=== PATIENT | male | born 1935 | race Caucasian/White ===

== ENCOUNTER 2016-12-08 00:18 | Inpatient (IN) | payer MEDICARE, OTHER ==
[~2016-12-08] VITALS: Ht 180.3 cm; Wt 121.5 kg
--- NOTE | ~2016-12-08 | CON ---
PATIENT'S NAME: TONNY FENG [facility] AGE: 81 Y [address] ROOM: [place] [id number] LOCATION: GICU ADMIT DATE: 12/08/2016 Consultation DISCHARGE DATE: FAMILY PHYSICIAN: Physician, New ATTENDING PHYSICIAN: LELIA ADAN DATE OF CONSULTATION: 12/08/2016 CONSULTATION NOTE REFERRING PROVIDER: Hospitalist Service. REASON FOR REFERRAL: Ventilator and critical care management. HISTORY OF PRESENT ILLNESS: The patient is a 81-year-old gentleman presenting with fever, generalize malaise, and urinary tract symptoms. He was found to have probable pyelonephritis. In the course of his workup and initial treatment, he developed progressively increasing shortness of breath requiring intubation. Currently, he is on the ventilator. PAST MEDICAL HISTORY: Unable to give. Please refer to the admission history and physical exam. FAMILY HISTORY: Unable to give. Please refer to the admission history and physical exam. SOCIAL HISTORY: Unable to give. Please refer to the admission history and physical exam. REVIEW OF SYSTEMS: Unable to give. Please refer to the admission history and physical exam. PHYSICAL EXAMINATION: GENERAL: Intubated, sedated but arousable. ENT: Endotracheal tube in place. NECK: Normal. CHEST: Normal. LUNGS: Clear with tidal breaths. HEART: Regular. ABDOMEN: Nontender. Slightly distended. Decreased bowel sounds. EXTREMITIES: Trace of edema. PATIENT'S NAME: TONNY FENG [facility] AGE: 81 Y [address] ROOM: [address] [address] LOCATION: GICU ADMIT DATE: 12/08/2016 Consultation DISCHARGE DATE: FAMILY PHYSICIAN: Physician, New ATTENDING PHYSICIAN: LELIA ADAN ASSESSMENT: Acute hypoxemic respiratory failure secondary to sepsis. Source of sepsis appears to be urinary tract. PLAN: Assist in ventilator and critical care management. MD LIVIER RAMSEY/silvana /[id number] d: 12/08/162109 t: 12/11/16 0949, CONSULTATION REPORT
--- NOTE | ~2016-12-08 | ENPV ---
Vascular Lower Extremities DVT Study Procedure Demographics Patient Name TONNY FENG Date of Study 12/09/2016 Patient Number [id number] Gender Male Date of 1935 Age 81 Visit Number [id number] Height 71 Accession Number [id number] Weight 253 Referring Alexandru Avendano MD Interpreting Bacilio Branch MD Physician Garrett Durham Physician Physician Ordering Physician Alexandru Avendano MD Proofer Apprentice Holistic Pulser Luther Villatoro, [facility] Conclusions Summary No evidence of deep vein thrombosis in bilateral common femoral veins, femoral veins, popliteal veins, posterior tibial veins, and the left distal peroneal veins. The right peroneal veins and the left proximal to mid peroneal veins were not visualized secondary to sub-optimal images. Cannot rule out deep vein thrombosis in these veins. Procedure Type of Study: Veins:Lower Extremities DVT Study, Venous Duplex Lower Extremity Bilateral. Indications for Study:Bilateral lower extremity edema. Appropriate Use Criteria:9 Patient Status:MIKEL. Study Location:Inpatient Portable. Technical Quality:Limited visualization due to sub-optimal image. Risk Factors - The patient's risk factor(s) include: treated arterial hypertension. - The patient has a former tobacco history(hasn't smoked in the past 50 years). Velocities are measured in cm/s ; Diameters are measured in cm Right Lower Extremities DVT Study Measurements Right 2D and Doppler Measurements + + + + +------+------+ + !Location !Visualized!Compressibility!Thrombosis!Signal!Reflux!Reflux ! ! ! ! ! ! ! !(sec) ! + + + + +------+------+ + !GSV Thigh !Yes !Yes !None !Phasic!No ! ! + + + + +------+------+ + !Common !Yes !Yes !None !Phasic!No ! ! !Femoral ! ! ! ! ! ! ! + + + + +------+------+ + !Prox !Yes !Yes !None !Phasic!No ! ! !Femoral ! ! ! ! ! ! ! + + + + +------+------+ + !Mid Femoral!Yes !Yes !None !Phasic!No ! ! + + + + +------+------+ + !Dist !Yes !Yes !None !Phasic!No ! ! !Femoral ! ! ! ! ! ! ! + + + + +------+------+ + !Popliteal !Yes !Yes !None !Phasic!No ! ! + + + + +------+------+ + !Gastroc !Yes !Yes !None ! ! ! ! + + + + +------+------+ + !PTV !Yes !Yes !None ! ! ! ! + + + + +------+------+ + !Peroneal !No ! ! ! ! ! ! + + + + +------+------+ + Left Lower Extremities DVT Study Measurements Left 2D and Doppler Measurements + + + + +------+------+ + !Location !Visualized!Compressibility!Thrombosis!Signal!Reflux!Reflux ! ! ! ! ! ! ! !(sec) ! + + + + +------+------+ + !GSV Thigh !Yes !Yes !None !Phasic!No ! ! + + + + +------+------+ + !Common !Yes !Yes !None !Phasic!No ! ! !Femoral ! ! ! ! ! ! ! + + + + +------+------+ + !Prox !Yes !Yes !None !Phasic!No ! ! !Femoral ! ! ! ! ! ! ! + + + + +------+------+ + !Mid Femoral!Yes !Yes !None !Phasic!No ! ! + + + + +------+------+ + !Dist !Yes !Yes !None !Phasic!No ! ! !Femoral ! ! ! ! ! ! ! + + + + +------+------+ + !Popliteal !Yes !Yes !None !Phasic!No ! ! + + + + +------+------+ + !Gastroc !Yes !Yes !None ! ! ! ! + + + + +------+------+ + !PTV !Yes !Yes !None ! ! ! ! + + + + +------+------+ + !Peroneal !Yes !Yes !None ! ! ! ! + + + + +------+------+ + Signature dtt: JOSE ALBERTO FORD dtd: 12/09/16 1611 Physician Self Edit
--- NOTE | ~2016-12-08 | OR ---
PATIENT'S NAME: TONNY FENG [facility] AGE: 81 Y [address] ROOM: [place] [address] LOCATION: GICU ADMIT DATE: 12/08/2016 OR/Procedure Report DISCHARGE DATE: FAMILY PHYSICIAN: Physician, New ATTENDING PHYSICIAN: LELIA TUCKER SURGEON: Lelia Tucker MD HAT AND CAP PARTS CUTTER HAND: DATE OF PROCEDURE: 12/08/2016 PROCEDURE: Rapid sequence intubation. INDICATION: Respiratory failure secondary to severe sepsis and septic shock. DESCRIPTION OF PROCEDURE: This procedure was done emergently. The patient was inducted using etomidate 20 mg and Versed 5 mg. Using video laryngoscopy, vocal cords were visualized and 7.0 tube was passed and seen going through the vocal cords. End-tidal showed good positioning. Post intubation chest x-ray showed good positioning of the tip of the intubation. No immediate complications noted for this procedure. LELIA TUCKER MD FAITH/rastal /[id number] d: 12/09/16 0007 t: 12/10/16 0205, OPERATIVE SUMMARY
--- NOTE | ~2016-12-08 | OR ---
PATIENT'S NAME: TONNY FENG [facility] AGE: 81 Y [address] ROOM: [place] [address] LOCATION: GICU ADMIT DATE: 12/08/2016 OR/Procedure Report DISCHARGE DATE: FAMILY PHYSICIAN: Physician, New ATTENDING PHYSICIAN: LELIA TUCKER SURGEON: Lelia Tucker MD GOLD BUYER: DATE OF PROCEDURE: 12/08/2016 PROCEDURE: Arterial line placement. INDICATION: Hemodynamic monitoring plus blood pressure monitoring. This procedure was done emergently. PROCEDURE IN DETAIL: The left radial artery was selected for cannulation. A site was prepared in a sterile fashion. Using Arrow kit, radial artery was tried to be accessed, but after 3 failed attempts, we selected the right radial artery and on first attempt, got bright red blood in a pulsatile fashion. Guidewire was advanced, and Angiocath was advanced over the guidewire. Guidewire was removed. It showed good placement of the art line on the monitor. Filipe test on both sides was performed, and no immediate complications noted. Line was secured. LELIA TUCKER MD FAITH/silvana /[id number] d: 12/09/16 0021 t: 12/10/16 0203, OPERATIVE SUMMARY
--- NOTE | ~2016-12-08 | OR ---
PATIENT'S NAME: TONNY FENG [facility] AGE: 81 Y [address] ROOM: [place] [address] LOCATION: GICU ADMIT DATE: 12/08/2016 OR/Procedure Report DISCHARGE DATE: FAMILY PHYSICIAN: PHYSICIAN, UNKNOWN ATTENDING PHYSICIAN: LELIA ADAN SURGEON: Devi Randhawa DO TANNING DRUM OPERATOR: DATE OF PROCEDURE: 12/08/2016 PREOPERATIVE DIAGNOSIS: Sepsis with need for central venous access for pressor support. POSTOPERATIVE DIAGNOSIS: Sepsis with need for central venous access for pressor support. PROCEDURE PERFORMED: Insertion of left subclavian vein triple-lumen central venous catheter. BRIEF HISTORY: Mr. Feng is a 81-year-old white male, intubated in the intensive care unit. He is in need of central venous access for continued blood pressure support. Informed consent has been obtained. The left infraclavicular space was sterilely prepped and draped. 1% lidocaine was used to infiltrate the area and with the patient in Trendelenburg position, the subclavian vein was accessed without difficulty and a guidewire fed without resistance. Stab incision was made at the base of the needle, and the needle was withdrawn. A soft tissue dilator was placed over the guidewire and withdrawn and then the triple-lumen catheter was placed over the guidewire, and the guidewire was withdrawn. Each lumen aspirated easily for dark venous blood and was flushed with sterile saline. It was secured into position with a 2-0 nylon, and a sterile dressing applied. A chest x-ray is pending for placement. DEVI RANDHAWA DO MCB/modl /[id number] d: 12/08/16 1143 t: 12/08/16 1234, OPERATIVE SUMMARY
--- NOTE | ~2016-12-08 | HP ---
PATIENT'S NAME: TONNY FENG [facility] AGE: 81 Y [address] ROOM: [place] [address] LOCATION: [facility] ADMIT DATE: 12/08/2016 History & Physical DISCHARGE DATE: FAMILY PHYSICIAN: PHYSICIAN, UNKNOWN ATTENDING PHYSICIAN: LELIA ADAN DATE OF SERVICE: CHIEF COMPLAINT: Not feeling good. HISTORY OF PRESENT ILLNESS: A 81-year-old gentleman with a past medical history of hypertension, had not been feeling great for past 4-5 days. He stated that he felt that he had some sort of flu, which has been going around the town. On specific questioning, he said he has been having trouble urinating in the past 3-4 days. He described that he is unable to initiate the urination and happening more frequently, but not associated with any burning or any pain. He did endorse having fever and chills in the last 3-4 days. Today, his symptoms got worse, and he was going to bean picker something from the floor and fell down and really does not remember anything. EMS was called. He was taken to the local emergency department. There, he was found to be tachycardic and febrile. Initial investigations revealed elevated white count as well as BRYAN. He was transferred here for further medical care. On my questioning, he stated that he is feeling much better after receiving some IV fluids and antibiotics since he presented to the outside hospital. He again endorsed having trouble urinating in the past couple of days associated with fever as mentioned above, but denied any chest pain, shortness of breath, headache, fever, cough, sputum production, dizziness, trouble with the eyes, trouble swallowing, any abdominal pain. He did endorse having couple of episodes of diarrhea. He further denied any PND, orthopnea, or leg swelling. Specifically asked, he denied any chest pain, any chest pressure, or tightness around his chest. REVIEW OF SYSTEMS: All other systems reviewed and were negative except what is mentioned in the HPI. ALLERGIES: NO KNOWN DRUG ALLERGIES. PAST MEDICAL HISTORY: Hypertension. No other medical conditions reported. HOME MEDICATION: Include, PATIENT'S NAME: TONNY FENG [facility] AGE: 81 Y [address] ROOM: [place] [address] LOCATION: [facility] ADMIT DATE: 12/08/2016 History & Physical DISCHARGE DATE: FAMILY PHYSICIAN: PHYSICIAN, UNKNOWN ATTENDING PHYSICIAN: LELIA ADAN 1. Aspirin. 2. Hydrochlorothiazide. 3. In addition to multivitamins. FAMILY HISTORY: Negative for coronary artery disease, stroke, diabetes, or hypertension. SOCIAL HISTORY: Quit smoking 50 years ago. Lives at home with who got dementia. PHYSICAL EXAM: VITAL SIGNS: On presentation to our facility were; heart rate 102, afebrile, blood pressure 112/68, respiratory rate 16, saturating 98% on room air. GENERAL: No acute distress. Alert and oriented x3. HEENT: Head: Atraumatic, normocephalic. Eyes: Nonicteric. No pallor. Oropharynx: Dry mucous membranes. CARDIOVASCULAR: S1, S2. No murmurs, gallops, or rubs. LUNGS: Clear to auscultation bilaterally. ABDOMEN: Soft, nontender, nondistended. Bowel sounds present. EXTREMITIES: No clubbing, cyanosis, or edema. PSYCH: Normal affect, mood, and speech. MUSCULOSKELETAL: No muscle tenderness or joint swelling noted. ENDOCRINE: No thyromegaly or myxedema noted. SKIN: No dryness or blemishes noted. LYMPH: No lymphangitis or lymphadenopathy noted. LABORATORY AND DIAGNOSTIC DATA: Lab work from outside facility was impressive for white count of 16, hemoglobin of 16 as well. CMP was remarkable for creatinine of 1.5 and a potassium of 3.1. Other remarkable findings included procalcitonin of 15 and a lactate level of 16. His troponins were mildly elevated as well at the outside facility. EKG done at the outside facility showed sinus tachycardia with Q-waves in the anterior leads with no acute ST-T wave changes. ASSESSMENT: 1. Severe sepsis secondary to acute pyelonephritis. 2. Acute pyelonephritis. 3. Acute kidney injury. 4. Hypokalemia. 5. Essential hypertension. PLAN: The patient will be admitted to the ICU. The patient was deemed septic at 11 PATIENT'S NAME: TONNY FENG [facility] AGE: 81 Y [address] ROOM: [place] [address] LOCATION: [facility] ADMIT DATE: 12/08/2016 History & Physical DISCHARGE DATE: FAMILY PHYSICIAN: PHYSICIAN, UNKNOWN ATTENDING PHYSICIAN: LELIA ADAN He since then has received 2 L of fluid. He will be getting 30 mL/kg per sepsis protocol. Antibiotics targeted against urinary tract organisms have been administered. We will repeat all the labs to see the improvement in the white count as well as lactate level as well. We will draw another set of troponin level. I believe this troponin leak is secondary to myocardial injury because of sepsis. In an absence of any chest pain, we will just monitor that and get an echocardiography in the morning. DVT prophylaxis with heparin. The patient is full code. Low-sodium diet. Further management will depend on his progress in the hospital. MD FAITH AVILA/silvana /[id number] D: 353 T: 803 HISTORY & PHYSICAL
--- NOTE | ~2016-12-08 | CON ---
PATIENT'S NAME: TONNY FENG [facility] AGE: 81 Y [address] ROOM: [address] [address] LOCATION: [facility] ADMIT DATE: 12/08/2016 Consultation DISCHARGE DATE: FAMILY PHYSICIAN: Wenceslao Dunham ATTENDING PHYSICIAN: LELIA TUCKER DATE OF CONSULTATION: 12/08/2016 REFERRING PHYSICIAN: Lelia Tucker MD HISTORY OF PRESENT ILLNESS: It was requested by Dr. Tucker on December 08 when the patient was admitted. He had an irregular rhythm and there was a suspicion that the patient had sustained ventricular tachycardia. We discussed over the phone the plan of action and I recommended bolus him with amiodarone and if necessary synchronized cardioversion. When I arrived, review of the electrocardiogram showed that the patient most likely was in atrial fibrillation with rapid ventricular response rate 160 to 170. In the meantime, he had converted to sinus rhythm after the amiodarone bolus, but he had generally deteriorated and he was intubated and started on Levophed. At that point, history was not possible, but today I saw the patient after he was extubated, then he is alert and oriented and he tells me that, about 48 hours before he became severely sick, he had shaking chills and elevated temperature and at the present time he has been diagnosed with gram-negative bacteremia secondary to urosepsis. Mr. Feng says that his overall state of health is very good, but he has not been to a doctor for years. He has been placed on hydrochlorothiazide many years ago which he takes daily along with aspirin. He denies any history of myocardial infarction or cerebrovascular accident. He never had a stress test. He is a retired rancher and he has noticed some exertional dyspnea, but he thinks it is appropriate for his age. He denies any episodes of chest pain or lightheadedness or syncope. SOCIAL HISTORY: He is . Lives with his . He smoked but stopped in his late 30s. No significant alcohol use. FAMILY HISTORY: His mother and grandmother both developed heart problems in the late 80s or early 90s before they . REVIEW OF SYSTEMS: Otherwise negative, and the patient specifically denies any diagnosis of irregular heart rhythm in the past. PHYSICAL EXAMINATION: VITAL SIGNS: He is 5 feet 11 inches, weighs 117 kg, blood pressure today is PATIENT'S NAME: TONNY FENG [facility] AGE: 81 Y [address] ROOM: [address] [place] [id number] LOCATION: [facility] ADMIT DATE: 12/08/2016 Consultation DISCHARGE DATE: FAMILY PHYSICIAN: Physician, New ATTENDING PHYSICIAN: LELIA TUCKER 101/66, pulse is 85. GENERAL: He is alert and oriented. SKIN: Warm and dry. HEAD: Normocephalic and atraumatic. NECK: Supple. No jugular venous distention. No carotid bruits. No thyromegaly. CHEST: Clear anteriorly. HEART: Distant first and second heart sounds. ABDOMEN: Obese, nontender. LOWER EXTREMITIES: No peripheral edema. LABORATORY DATA AND X-RAY: His electrocardiogram today shows sinus rhythm with premature ventricular contractions. Review of his laboratories so far shows that the troponin I on admission was 1.13 and peaked at 3.76 and now is down to 1.47. His proBNP day 1 was 5530, today is 2480. Creatinine was 1.4 and today is 1.8. His potassium is 3.3. On admission, his white cell count was 20,000 and now is down to 11.1. His echocardiogram was technically difficult, only the subcostal window was useful but shows overall preserved ejection fraction of 50% to 55% without obvious regional wall motion abnormalities or no significant valvular disease. Hemoglobin A1c is 5.8%. TSH could not be measured. PLAN: 1. Since the patient relapsed after converting to atrial fibrillation and he is back again on intravenous amiodarone today, probably he will need this on a chronic basis to control his rhythm. 2. I will obtain a pharmacologic stress test to risk stratify him for any significant underlying ischemia. He has a degree of diastolic heart failure by the elevated proBNP but also a degree of acute kidney injury which raises this biomarker. 3. meterman he will need to be on anticoagulation because of his age and history of hypertension and borderline diabetes. Thank you for allowing me to participate in the care of your patient. JEY HARRSI MD PE/silvana /[id number] d: 12/09/163 t: 12/11/16 1610, CONSULTATION REPORT
--- NOTE | ~2016-12-08 | ESTC ---
Cardiac Perfusion Imaging Demographics Patient Name JUNG Mike Gender Male Patient Number [id number] Race Visit Number [id number] Ethnicity Corporate ID Room Number [id number] Accession Number [id number] Height 71 inches Date of 1935 Weight 253 pounds Interpreting Jigna Pemberton Date of study 12/10/2016 Physician MD Mannie Blair Supervising MD/MLP Jigna Pemberton NM Technologist Gillian Smith MD Ordering Physician Donald Pak MD heavy truck technician Stress ECG Reading [facility] Niecy Nurse Cory Warren Physician MD TOM Blair Procedure Procedure Type: Nuclear Stress Test:Pharmacological, Lexiscan, Cardiolite Stress Test Procedure Start time: 12/10/2016 00:00 Indications: Arrhythmia. Risk Factors The patient risk factors include:former tobacco use, treated hypertension and ( years not smokin). Conclusions Summary Perfusion Images: The overall quality of the study is fair, due to gastrointestinal tracer uptake. Left ventricular cavity is noted to be normal on the stress and rest studies. There is no evidence of abnormal lung activity. The right ventricle is not visualized and cannot be assessed. Stress SPECT images demonstrate medium to large size severe decrease in tracer uptake in the inferior/inferoseptal wall with minimal reversibility noted on rest images. Gated SPECT imaging reveals mild inferior wall hypokinesis. The left ventricular ejection fraction was calculated to be 58%. Impression ECG portion of the lexiscan stress test is clinically negative for ischemia by diagnostic criteria. Myocardial perfusion imaging is abnormal. 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 Gated SPECT imaging reveals mild inferior wall hypokinesis. The left ventricular ejection fraction was calculated to be 58%. This is a low to intermediate risk stress test. Clinical correlation is recommended. Stress Protocols Resting ECG NSR Pre-stress physical exam: reg rhythm Patient assessed by Dr. Puentes prior to testing. Peak HR:96 bpm HR/BP product:[id number] Peak BP:158/5971 mmHg Predicted HR: 141 bpm % of predicted HR: 68 ECG Findings No ECG changes suggestive of ischemia. Arrhythmias No rhythm abnormality. Symptoms Dizziness. Stress Interpretation Appropriate hemodynamic response to Lexiscan. No significant ST-T wave changes with Lexiscan. ECG portion is negative for ischemia by diagnostic criteria. Imaging Results Applied corrections - Motion correction applied High risk findings Summed scores - Summed stress score: 10 - Summed rest score: 8 - Summed difference score: 2 Stress ejection Ejection fraction:58 % EDV :104 ml ESV :44 ml Stroke volume :60 ml LV mass :135 gr Imaging Protocols Rest Stress Isotope:Tc99m Sestamibi IV Isotope: Tc99m Sestamibi IV Isotope dose:16 mCi Isotope dose:49.9 mCi Date:12/10/2016 11:40 Date:12/10/2016 13:58 Technique: SPECT Technique: Gated Supine SPECT Supine IV remains in place after procedure. Procedure Medications - Regadenoson (Lexiscan) 0.4 mg IV over 10-15 sec. I.V. 0.4 mg. Medications administered per verbal order and read back to physician prior to administration. Medical History Admission Data Admission date: 12/08/2016 Admission Time: 02:38 Hospital Status: Inpatient. Signatures dtt: NIECY HIGGINS dtd: 12/10/16 0000 Physician Self Edit
--- NOTE | ~2016-12-08 | ECHO ---
Transthoracic Echocardiography Report (TTE) Demographics Patient Name TONNY FENG Date of Study 12/08/2016 Patient Number [id number] Visit Number [id number] Date of 1935 Room Number G6206 Accession Number [id number] Gender Male Age 81 year(s) Referring Liquid Yeast Supervisor Reshma Rebollar RVT, Physician ZURI Physician Interpreting Donald Ortez Television Cable Installer Physician A Supervising Ordering Physician Garrett Durham MD/CARLIEP Nurse Stress Marine Operations Coordinator Conclusions Contractility Score Summary Normal Left Ventricular contractility was noted. Summary The estimated left ventricular ejection fraction is 50-55%. Technically difficult study. Mild concentric left ventricular hypertrophy. Diastolic assessment appears Grade I diastolic dysfunction. The right atrium is moderately dilated. Dilated IVC with poor inspiratory collapse consistent with elevated RA pressure. Procedure Type of Study TTE procedure:2D Echocardiogram. Procedure Date Date: 12/08/2016 Start: 06:41 AM Study Location: Inpatient Portable Technical Quality: Adequate visualization Indications:Elevated Troponin and Septic shock. Appropriate Use Criteria: 8 Patient Status: Routine Rhythm: NSR HR: 85 bpm BP: 132/55 mmHg M-Mode/2D Measurements LV Diastolic Dimension: 5.34 cm LV Systolic Dimension: 3.79 cm LV Septum Diastolic: 1.21 cm LV PW Diastolic: 1.06 cm Cardiac Output: 3.55 l/min LA Dimension: 4.4 cm RV Diastolic Dimension: 2.39 cm LVOT: 2 cm EF Estimated: 50 % LVOT VTI: 13.3 cm LV Stroke volume: 41.76 ml TAPSE: 2.25 cm TDI-S': 8.77 cm/s Doppler Measurements AV Peak Velocity: 1.39 m/s MV Peak E-Wave: 0.36 m/s AV Peak Gradient: 7.73 mmHg MV Peak A-Wave: 0.56 m/s AV Mean Gradient: 5 mmHg MV E/A Ratio: 0.65 LVOT Peak Velocity: 0.78 m/s MV P1/2t: 47 msec PV Peak Velocity: 0.94 m/s E' Septal Velocity: 0.06 m/s PV Peak Gradient: 3.56 mmHg E' Lateral Velocity: 0.07 m/s A' Septal Velocity: 0.05 m/s A' Lateral Velocity: 0.03 m/s Findings Left Ventricle Mild concentric left ventricular hypertrophy. The left ventricle is borderline dilated . Diastolic assessment appears Grade I diastolic dysfunction. Right Ventricle Normal right ventricle structure and function. Left Atrium Normal left atrial size. There is no evidence of patent foramen ovale or atrial septal defect by color Doppler. Right Atrium The right atrium is moderately dilated. Dilated IVC with poor inspiratory collapse Patient is intubated Mitral Valve Normal mitral valve structure and function. Aortic Valve Normal aortic valve structure and function. Tricuspid Valve Normal tricuspid valve structure and function. Pulmonic Valve Normal pulmonic valve structure and function. Pericardial Effusion No evidence of pericardial effusion. Miscellaneous Visualized portions of the aortic root and ascending aorta appear normal in size. Pleural Effusion No evidence of pleural effusion. Contractility Score LV regional wall motion:(0-Non visualized 1-Normal 2-Hypokinesis 3-Akinesis 4-Dyskinesis 5-Aneurysm) Signature dtt: Nicolás Bennett dtd: 12/08/16 0641 Physician Self Edit
--- NOTE | ~2016-12-08 | DS ---
PATIENT'S NAME: TONNY FENG [facility] AGE: 81 Y [address] ROOM: [address] [address] LOCATION: GPCU ADMIT DATE: 12/08/2016 Discharge Summary DISCHARGE DATE: 12/15/2016 FAMILY PHYSICIAN: CLARICE MORALES ATTENDING PHYSICIAN: Alis Tucker PRINCIPAL DISCHARGE DIAGNOSIS: Severe sepsis with septic shock. SECONDARY DIAGNOSES: 1. Escherichia coli urinary tract infection. 2. Non-ST elevation myocardial infarction. 3. Paroxysmal atrial fibrillation. 4. Acute kidney injury superimposed on probable chronic kidney disease stage 3. Current labs: EGFR is 35, BUN 29, and creatinine 1.8. 5. Essential hypertension. 6. Generalized weakness with deconditioning. 7. Moderate protein-calorie malnutrition. 8. Abnormal TSH which was 4.38 on 12/10/2016. 9. Acute hypoxic respiratory failure. 10. Hypokalemia, mild, currently 3.5. 11. Contact dermatitis. 12. Acute pyelonephritis. CONSULTATIONS: 1. Dr. Bennett, on 12/08/2016, of Cardiology. 2. Dr. Macias on 12/08/2016 for critical care and ventilator management. 3. Dr. Manny Bejarano, cardiovascular surgeon, for central venous access. PROCEDURES: 1. Echocardiogram on 12/08/2016. Summary of results showed. a. Normal left ventricular contractility, EF estimated at 50% to 55%. b. Mild concentric left ventricular hypertrophy. c. Grade 1 diastolic dysfunction. d. Right atrium mildly dilated. e. Dilated IVC with poor inspiratory collapse consistent with elevated right atrial pressures. 2. Bilateral lower extremity venous Dopplers on 12/09/2016. No evidence of DVT on the left; however, the right peroneal veins and the left proximal to mid peroneal veins were not visualized secondary suboptimal images. 3. On 12/10/2016, cardiac stress test. Gated SPECT imaging reveals mild inferior wall hypokinesis and the LV ejection fraction was estimated at 58%. Myocardial perfusion imaging was abnormal and revealed a medium to large size area of predominantly fixed perfusion defect with minimal reversibility successful with inferior wall infarct with arnulfo-infarct ischemia. PATIENT'S NAME: TONNY FENG [facility] AGE: 81 Y [address] [address] LOCATION: GPCU ADMIT DATE: 12/08/2016 Discharge Summary DISCHARGE DATE: 12/15/2016 FAMILY PHYSICIAN: CLARICE MORALES ATTENDING PHYSICIAN: Alis Tucker 4. Left subclavian triple-lumen catheter insertion on 12/08/2016. 5. Arterial line placement on 12/08/[address] Tucker and rapid sequence intubation on 12/08/[address] Tucker. BRIEF SUMMARY: Mr. Feng is a 81-year-old male who presented to our hospital after a 4- to 5-day illness and he felt like he had some sort of viral illness which had been going around his community. He had trouble urinating for 3 to 4 days. He was unable to initiate urinating, but no burning or any pain. He had some fever and chills for 3 to 4 days. His symptoms got worse on the day of admission. He had a syncopal episode. He was taken to the local emergency room and he was found to be tachycardiac and febrile, and he was transferred to our facility for further evaluation and management. He was feeling better after the antibiotics and IV fluids at the outlying hospital. Others symptoms at the time of admission included some diarrhea. He did not have PND, orthopnea, or leg swelling at that time. He was not having chest pain or chest tightness. On admission, his white blood cell count was 16, hemoglobin was 16. He had a creatinine of 1.5, his potassium was 3.1. Procalcitonin of 15. Lactate level of 16. Troponin was mildly elevated at the outside facility. His EKG in the outside facility showed tachycardia with Q-waves in the anterior leads and no acute ST changes. We noted that the patient was breathing on his own on admission, and he later required intubation and was admitted to the ICU. He was treated according to the sepsis protocol with broad-spectrum antibiotics. Within a couple days, by the , it seemed like he was able to be transferred to the PCU where he remained for the rest of his hospitalization. In the interim with elevated troponins and on stress test as noted above, he was noted to have non-STEMI. He was started on aspirin and statin at the time of admission. Has been seen by Cardiology. He developed paroxysmal atrial fibrillation with RVR. Was started on amiodarone on the . He was started on anticoagulation with Xarelto. His heart rate is now controlled. [facility], and he was found to have a susceptible Escherichia coli and his antibiotic coverage was narrowed down from meropenem on the to levofloxacin 750 mg p.o. every other day. He has had two doses of that thus far and was to be discharged on 3 more doses. However, urinalysis obtained yesterday was perfectly clear. The patient is not having any more difficulty urinating. He has been started on Flomax and he is doing well. In terms of his acute kidney injury, he had a peak creatinine of 2.1 on December 10. His creatinine is now 1.8. Results of the basic metabolic panel today showed a potassium of 3.5, sodium 143, chloride 106, CO2 of 28, BUN 29. His white blood cell count today is 9.1 with PATIENT'S NAME: TONNY FENG [facility] AGE: 81 Y [address] ROOM: [address] [address] LOCATION: GPCU ADMIT DATE: 12/08/2016 Discharge Summary DISCHARGE DATE: 12/15/2016 FAMILY PHYSICIAN: CLARICE MORALES ATTENDING PHYSICIAN: Alis Tucker hemoglobin 13.4, platelets 262,000, and essentially normal differential. The patient has been advised to avoid NSAIDs and informed that he should take Tylenol as needed only up to 4 grams a day for his arthritis in his knee. The patient looks well, slightly diuretic, but he is afebrile, pulse of 78, respirations 18, blood pressure 156/71, oxygen saturation is 90% to 92% after ambulating around the PCU unit one time. As far as lab followup, I am recommending that he get a basic metabolic panel to check his potassium in 3 days. I will start him on a low dose of daily potassium and advised one or two servings of high potassium foods per day until then. He should have a urinalysis with culture in 2 weeks. He should have a repeat TSH in six weeks for a TSH of greater than 4 on admission. This may be due to his acute illness, and no thyroid supplementation is indicated at this time The patient and his family expressed agreement and understanding with discharge plans which were reviewed in detail with them. INSTRUCTIONS AT DISCHARGE: Diet; [employer] with high- potassium foods, further as tolerated. Activity, as tolerated. He should check his weight daily and notify his doctor if there is a 3-pound weight increase over 48 hours. Follow up with the local envelope sealer in 2 weeks. He should see the PAEdward in the next 3 days. He should try to establish PCP with Dr. Logan and see a physician on a regular basis going forward. MEDICATIONS AT THE TIME OF DISCHARGE: 1. Amiodarone 400 mg p.o. t.i.d. 2. Amlodipine 2.5 mg p.o. daily. 3. Aspirin 81 mg p.o. daily. 4. Atorvastatin 80 mg p.o. daily. 5. Levaquin 750 mg p.o. every other day. He is instructed to take a tablet on , , and stop on the . 6. Lopressor 25 mg p.o. b.i.d. 7. Protonix 40 mg p.o. daily. 8. Xarelto 15 mg p.o. daily. 9. Tamsulosin 0.4 mg p.o. at h.s. daily. 10. Tylenol p.r.n. 11. He is instructed to stop HydroDIURIL. 12. It is okay to continue with multiple vitamin and glucosamine. 13. K-Dur 20 mEq p.o. 1 every morning. 14. Probiotic for least one month daily. PATIENT'S NAME: TONNY FENG [facility] AGE: 81 Y [address] ROOM: [address] [address] LOCATION: GPCU ADMIT DATE: 12/08/2016 Discharge Summary DISCHARGE DATE: 12/15/2016 FAMILY PHYSICIAN: CLARICE MORALES ATTENDING PHYSICIAN: Alis Tucker CONDITION AT DISCHARGE: Good. TIME SPENT: Greater than 45 minutes was spent in total discharge, examining the patient, and reviewing the discharge plans. SWATI TA MD LM/silvana /[id number] d: 12/16/16 0249 t: 12/18/16 1846, DISCHARGE SUMMARY
[2016-12-08] MEDS ORDERED: HYDRODIURIL25 MG PO (03:22)
[2016-12-08] MEDS ORDERED: ASPIRIN (CHILDR81 MG PO (03:23)
[2016-12-08] MEDS ORDERED: MULTI VITAMIN1 EACH PO (03:23)
[2016-12-08] MEDS ORDERED: GLUCOSAMINE CH1 EAC3 PO (03:24)
[2016-12-08 03:43] LABS: BILIRUBIN URINE NEGATIVE (NEGATIVE); BLOOD URINE 250 /UL (NEGATIVE); GLUCOSE URINE NEGATIVE (NEGATIVE); KETONE URINE 15 mg/dL (NEGATIVE); LEUKOCYTES URINE 500 /UL (NEGATIVE); NITRITE URINE NEGATIVE (NEGATIVE); PROTEIN URINE 100 mg/dL (NEGATIVE); SPEC GRAVITY URINE 1.025 (1.003-1.035); TURBIDITY URINE 2+ (CLEAR); UROBILINOGEN URINE NORMAL (NORMAL)
[2016-12-08 03:46] LABS: COLOR URINE AMBER (YELLOW)
[2016-12-08 03:52] LABS: AMORPHOUS URINE 1+ (NEGATIVE); BACTERIA URINE MODERATE (NEGATIVE); EPITHELIAL URINE 0-2 #/HPF (NEGATIVE); RBC URINE 20-50 #/HPF (NEGATIVE); WBC URINE FULL FIELD #/HPF (NEGATIVE)
[2016-12-08 04:01] LABS: BICARBONATE 30.2 mmol/L (18.0-23.0); PCO2 51 mmHg (35-45)
[2016-12-08 04:05] LABS: PO2 36 mmHg (80-90)
[2016-12-08 04:17] LABS: INR - (THERAPEUTIC) 1.11 (0.92-1.07); PROTIME 11.7 SECONDS (9.8-11.4)
[2016-12-08 04:30] LABS: ALBUMIN 3.1 gm/dL (3.5-5.0); ANION GAP 13.5 (10.0-19.0); CALCIUM 8.5 mg/dL (8.5-10.5); CREATININE 1.4 mg/dL (0.6-1.3); POTASSIUM 3.5 mMol/L (3.7-5.1); TOTAL BILIRUBIN 1.3 mg/dL (0.0-1.5); TOTAL PROTEIN 6.8 g/dL (6.0-8.4)
[2016-12-08 04:49] LABS: BICARBONATE 26.2 mmol/L (18.0-23.0)
[2016-12-08 04:50] LABS: PCO2 36 mmHg (35-45); PO2 62 mmHg (80-90)
[2016-12-08 07:51] LABS: HEMATOCRIT 42.2 % (37.0-53.0); HEMOGLOBIN 14.8 g/dL (11.0-16.0); MCHC 35.1 gm/dL (32.0-36.5); MCV 91.3 fl (83.0-98.0); PLATELET COUNT 187 K/uL (150-450); RBC 4.62 M/uL (3.50-5.50); RDW-CV 13.9 % (11.9-14.6)
[2016-12-08 08:11] LABS: ANION GAP 14.4 (10.0-19.0); CREATININE 1.6 mg/dL (0.6-1.3); POTASSIUM 3.4 mMol/L (3.7-5.1)
[2016-12-08 08:24] LABS: ABSOLUTE NEUTROPHIL CT (ANC) 18.2 K/uL (1.4-9.0); BANDED NEUTROPHILS % 10 %; LYMPHOCYTE # 0.2 K/uL (0.8-4.0); LYMPHOCYTE % 1 %; MONOCYTE # 1.4 K/uL (0.0-1.0); SEGMENTED NEUTROPHIL # 16.2 K/uL (1.4-9.0); SEGMENTED NEUTROPHIL % 81 %
[2016-12-08 10:05] LABS: ALBUMIN 2.8 gm/dL (3.5-5.0); MAGNESIUM 2.1 mg/dL (1.8-2.6); TOTAL BILIRUBIN 1.5 mg/dL (0.0-1.5); TOTAL PROTEIN 6.2 g/dL (6.0-8.4)
[2016-12-09 05:24] LABS: ALBUMIN 2.1 gm/dL (3.5-5.0); ANION GAP 12.3 (10.0-19.0); CALCIUM 7.7 mg/dL (8.5-10.5); CREATININE 1.8 mg/dL (0.6-1.3); PHOSPHORUS 2.1 mg/dL (2.5-4.9); POTASSIUM 3.3 mMol/L (3.7-5.1)
[2016-12-09 05:57] LABS: BASOPHIL % 0.3 %; EOSINOPHIL % 0.2 %; HEMATOCRIT 37.7 % (37.0-53.0); HEMOGLOBIN 12.9 g/dL (11.0-16.0); IMMATURE GRANULOCYTE # 0.1 K/uL (0.0-0.3); LYMPHOCYTE # 0.7 K/uL (0.8-4.0); LYMPHOCYTE % 5.9 %; MCH 31.2 pg (27.0-34.0); MCHC 34.2 gm/dL (32.0-36.5); MCV 91.1 fl (83.0-98.0); MONOCYTE % 9.1 %; MPV 11.9 fl (9.4-12.4); NEUTROPHIL # (ANC) 9.3 K/uL (1.4-9.0); NEUTROPHIL % 83.5 %; NRBC % 0 /100WBC (0-0.00); PLATELET COUNT 132 K/uL (150-450); RBC 4.14 M/uL (3.50-5.50); RDW-CV 14.2 % (11.9-14.6); WBC 11.1 K/uL (4.0-11.0)
[2016-12-10 04:28] LABS: ALBUMIN 2.2 gm/dL (3.5-5.0); ANION GAP 10.3 (10.0-19.0); CALCIUM 7.7 mg/dL (8.5-10.5); CREATININE 2.1 mg/dL (0.6-1.3); PHOSPHORUS 2.4 mg/dL (2.5-4.9); POTASSIUM 3.3 mMol/L (3.7-5.1)
[2016-12-10 04:47] LABS: BASOPHIL % 0.2 %; EOSINOPHIL # 0.1 K/uL (0.0-0.5); EOSINOPHIL % 0.9 %; HEMATOCRIT 38.5 % (37.0-53.0); HEMOGLOBIN 13.3 g/dL (11.0-16.0); IMMATURE GRANULOCYTE # 0.1 K/uL (0.0-0.3); IMMATURE GRANULOCYTE % 0.5 %; LYMPHOCYTE # 0.8 K/uL (0.8-4.0); LYMPHOCYTE % 8.8 %; MCH 31.6 pg (27.0-34.0); MCHC 34.5 gm/dL (32.0-36.5); MCV 91.4 fl (83.0-98.0); MONOCYTE # 0.9 K/uL (0.0-1.0); MONOCYTE % 9.6 %; MPV 11.7 fl (9.4-12.4); NEUTROPHIL # (ANC) 7.3 K/uL (1.4-9.0); NRBC % 0 /100WBC (0-0.00); PLATELET COUNT 151 K/uL (150-450); RBC 4.21 M/uL (3.50-5.50); RDW-CV 14.4 % (11.9-14.6); WBC 9.1 K/uL (4.0-11.0)
[2016-12-10 12:39] LABS: INR - (THERAPEUTIC) 0.92 (0.92-1.07); PROTIME 9.6 SECONDS (9.8-11.4)
[2016-12-11 05:21] LABS: BASOPHIL % 0.3 %; EOSINOPHIL # 0.2 K/uL (0.0-0.5); EOSINOPHIL % 2.1 %; HEMATOCRIT 38.6 % (37.0-53.0); HEMOGLOBIN 13.5 g/dL (11.0-16.0); IMMATURE GRANULOCYTE % 0.6 %; LYMPHOCYTE # 0.7 K/uL (0.8-4.0); LYMPHOCYTE % 10.2 %; MCH 31.7 pg (27.0-34.0); MCV 90.6 fl (83.0-98.0); MONOCYTE # 0.8 K/uL (0.0-1.0); MONOCYTE % 10.9 %; MPV 11.1 fl (9.4-12.4); NEUTROPHIL # (ANC) 5.5 K/uL (1.4-9.0); NEUTROPHIL % 75.9 %; NRBC % 0 /100WBC (0-0.00); PLATELET COUNT 167 K/uL (150-450); RBC 4.26 M/uL (3.50-5.50); RDW-CV 14.3 % (11.9-14.6); WBC 7.3 K/uL (4.0-11.0)
[2016-12-11 05:28] LABS: ALBUMIN 2.3 gm/dL (3.5-5.0); ANION GAP 11.3 (10.0-19.0); CALCIUM 7.9 mg/dL (8.5-10.5); MAGNESIUM 2.4 mg/dL (1.8-2.6); PHOSPHORUS 2.8 mg/dL (2.5-4.9); POTASSIUM 3.3 mMol/L (3.7-5.1)
[2016-12-12 05:12] LABS: ALBUMIN 2.4 gm/dL (3.5-5.0); ANION GAP 11.3 (10.0-19.0); CREATININE 1.8 mg/dL (0.6-1.3); PHOSPHORUS 3.1 mg/dL (2.5-4.9); POTASSIUM 3.3 mMol/L (3.7-5.1)
[2016-12-12 05:20] LABS: BASOPHIL % 0.5 %; EOSINOPHIL # 0.3 K/uL (0.0-0.5); EOSINOPHIL % 3.4 %; HEMATOCRIT 39.1 % (37.0-53.0); HEMOGLOBIN 13.4 g/dL (11.0-16.0); IMMATURE GRANULOCYTE # 0.1 K/uL (0.0-0.3); IMMATURE GRANULOCYTE % 0.7 %; LYMPHOCYTE # 0.9 K/uL (0.8-4.0); LYMPHOCYTE % 12.1 %; MCH 30.9 pg (27.0-34.0); MCHC 34.3 gm/dL (32.0-36.5); MCV 90.3 fl (83.0-98.0); MONOCYTE # 0.8 K/uL (0.0-1.0); MONOCYTE % 11.1 %; MPV 11.4 fl (9.4-12.4); NEUTROPHIL # (ANC) 5.3 K/uL (1.4-9.0); NEUTROPHIL % 72.2 %; NRBC % 0 /100WBC (0-0.00); PLATELET COUNT 196 K/uL (150-450); RBC 4.33 M/uL (3.50-5.50); RDW-CV 14.3 % (11.9-14.6); WBC 7.4 K/uL (4.0-11.0)
[2016-12-13 03:59] LABS: ANION GAP 11.7 (10.0-19.0); CALCIUM 8.1 mg/dL (8.5-10.5); CREATININE 1.8 mg/dL (0.6-1.3); POTASSIUM 3.7 mMol/L (3.7-5.1)
[2016-12-14 02:32] LABS: ALBUMIN 2.5 gm/dL (3.5-5.0); ANION GAP 10.6 (10.0-19.0); CALCIUM 8.2 mg/dL (8.5-10.5); CREATININE 1.8 mg/dL (0.6-1.3); PHOSPHORUS 3.4 mg/dL (2.5-4.9); POTASSIUM 3.6 mMol/L (3.7-5.1)
[2016-12-14 02:39] LABS: BASOPHIL % 0.3 %; EOSINOPHIL # 0.3 K/uL (0.0-0.5); HEMATOCRIT 38.9 % (37.0-53.0); HEMOGLOBIN 13.5 g/dL (11.0-16.0); IMMATURE GRANULOCYTE # 0.1 K/uL (0.0-0.3); IMMATURE GRANULOCYTE % 0.7 %; LYMPHOCYTE % 11.1 %; MCH 31.5 pg (27.0-34.0); MCHC 34.7 gm/dL (32.0-36.5); MCV 90.7 fl (83.0-98.0); MONOCYTE % 10.4 %; MPV 10.9 fl (9.4-12.4); NEUTROPHIL # (ANC) 6.8 K/uL (1.4-9.0); NEUTROPHIL % 74.5 %; NRBC % 0 /100WBC (0-0.00); RBC 4.29 M/uL (3.50-5.50); WBC 9.1 K/uL (4.0-11.0)
[2016-12-14 02:41] LABS: PLATELET COUNT 244 K/uL (150-450)
[2016-12-14 09:27] LABS: BILIRUBIN URINE NEGATIVE (NEGATIVE); BLOOD URINE NEGATIVE /UL (NEGATIVE); COLOR URINE YELLOW (YELLOW); GLUCOSE URINE NEGATIVE (NEGATIVE); KETONE URINE NEGATIVE (NEGATIVE); LEUKOCYTES URINE NEGATIVE /UL (NEGATIVE); NITRITE URINE NEGATIVE (NEGATIVE); PROTEIN URINE NEGATIVE (NEGATIVE); TURBIDITY URINE CLEAR (CLEAR); UROBILINOGEN URINE NORMAL (NORMAL)
[2016-12-15 07:39] LABS: HEMATOCRIT 38.6 % (37.0-53.0); HEMOGLOBIN 13.4 g/dL (11.0-16.0); MCH 31.3 pg (27.0-34.0); MCHC 34.7 gm/dL (32.0-36.5); MCV 90.2 fl (83.0-98.0); MPV 10.5 fl (9.4-12.4); PLATELET COUNT 262 K/uL (150-450); RBC 4.28 M/uL (3.50-5.50); RDW-CV 13.8 % (11.9-14.6); WBC 9.1 K/uL (4.0-11.0)
[2016-12-15 07:57] LABS: ANION GAP 12.5 (10.0-19.0); CALCIUM 8.4 mg/dL (8.5-10.5); CREATININE 1.8 mg/dL (0.6-1.3); POTASSIUM 3.5 mMol/L (3.7-5.1)
[2016-12-15 08:40] LABS: BANDED NEUTROPHIL # 0.1 K/uL (0.0-0.1); BANDED NEUTROPHILS % 1 %; LYMPHOCYTE # 0.8 K/uL (0.8-4.0); LYMPHOCYTE % 9 %; MONOCYTE # 0.9 K/uL (0.0-1.0); SEGMENTED NEUTROPHIL # 6.9 K/uL (1.4-9.0); SEGMENTED NEUTROPHIL % 76 %
[2016-12-15] MEDS ORDERED: CORDARONE,PACE200 MG PO (11:25)
[2016-12-15] MEDS ORDERED: NORVASC2.5 MG PO (11:27)
[2016-12-15] MEDS ORDERED: LIPITOR80 MG PO (11:28)
[2016-12-15] MEDS ORDERED: LEVAQUIN 750 M750 MG PO (11:30)
[2016-12-15] MEDS ORDERED: LOPRESSOR25 MG PO (11:33)
[2016-12-15] MEDS ORDERED: PROTONIX40 MG PO (11:33)
[2016-12-15] MEDS ORDERED: XARELTO15 MG PO (11:34)
[2016-12-15] MEDS ORDERED: FLOMAX0.4 MG PO (11:35)
[2016-12-15] MEDS ORDERED: TYLENOL325 MG PO (11:37)
[2016-12-15] MEDS ORDERED: PROBIOTIC1 EAC1 PO (11:39)
[2016-12-15] MEDS ORDERED: K-TAB ER20 MEQ PO (11:40)
== END 2016-12-15 12:05 | disposition home health service (06) | DRG 871 ==
LOC: GICU 00:18 → GPCU 12-12 05:57
PROVIDERS: Family Medicine; Nurse Practitioner Family; ADMIT Internal Medicine
PROC: 0CHY8BZ Insertion of Airway into Mouth and Throat, Via Natural or Artificial Opening Endoscopic (ICD-10-PCS; principal; 2016-12-08)
DX: A41.9 Sepsis, unspecified organism (principal); R65.21 Severe sepsis with septic shock; J96.01 Acute respiratory failure with hypoxia; I21.4 Non-ST elevation (NSTEMI) myocardial infarction; N17.9 Acute kidney failure, unspecified; I47.2 Ventricular tachycardia; N18.3 Chronic kidney disease, stage 3 (moderate); E44.0 Moderate protein-calorie malnutrition; N10 Acute pyelonephritis; N39.0 Urinary tract infection, site not specified; B96.20 Unspecified Escherichia coli [E. coli] as the cause of diseases classified elsewhere; I48.0 Paroxysmal atrial fibrillation; M19.90 Unspecified osteoarthritis, unspecified site; I12.9 Hypertensive chronic kidney disease with stage 1 through stage 4 chronic kidney disease, or unspecified chronic kidney disease; E87.6 Hypokalemia; Z79.82 Long term (current) use of aspirin; Z23 Encounter for immunization
CPT/HCPCS: A9500; C9113; G0009; J0153; J0282; J0696; J1644; J2020; J2185; J2250; J2370; J2543; J2785; J3010; J3370; J3475; J3480; J7030; J7040; J7050; J7060; J7120